=== PATIENT | male | born 1975 | race Caucasian/White ===

== ENCOUNTER 2020-06-23 12:10 | Emergency (ER) | payer SELFPAY ==
[2020-06-23] MEDS ORDERED: HYDROcod/ACETAM 5/325 MG TABLET PO STA (12:24)
--- NOTE | 2020-06-23 12:27 | ED Physician Documentation ---
PD HPI UPPER EXT INJURY - Stated complaint Stated Complaint: LT SHOULDER PX - Chief complaint Chief Complaint: Ext Problem - History obtained from History obtained from: Patient (He fell 2 days ago backwards onto his left shoulder and has persistent moderate pain there. No other injuries.) Review of Systems Constitutional: reports: Reviewed and negative Nose: reports: Reviewed and negative Throat: reports: Reviewed and negative PD PAST MEDICAL HISTORY - Present Medications Home Medications: Ambulatory Orders Medication Instructions Recorded Confirmed HYDROcod/ACETAM 5/325 [[place] 5/325] 1 - 2 tab PO Q6H PRN #15 tablet 06/23/20 - Allergies Allergies/Adverse Reactions: Allergies Allergy/AdvReac Type Severity Reaction Status Date / Time No Known Drug Allergies Allergy Verified 06/23/20 12:14 PD ED PE NORMAL - Vitals Vital signs reviewed: Yes - General General: Alert and oriented X 3, No acute distress - HEENT HEENT: PERRL, EOMI - Neck Neck: Supple, no meningeal sign, No bony TTP - Back Back: No spinal TTP - Extremities Extremities: Other (The shoulder itself is nontender, he is tender to the left scapula and potentially the ribs underneath it. No midline spinal tenderness. He is only able to abduct to about 90 degrees. Internal rotation is painless, external rotation on the extreme is painful.) - Neuro Neuro: Alert and oriented X 3, Normal speech Results - Vitals Vitals: Vital Signs - 24 hr 06/23/20 12:14 Temperature 36.7 C Heart Rate 84 Respiratory 18 Rate Blood Pressure 139/106 H O2 Saturation 100 Oxygen O2 Source Room air - Rads (name of study) L rib and scapula XRs' Radiology: EMP read contemporaneously (NAD) Departure - Departure Disposition: 01 Home, Self Care Clinical Impression: Contusion of left scapula Qualifiers: Encounter type: initial encounter Qualified Code(s): S40.012A - Contusion of left shoulder, initial encounter Contusion of rib on left side Qualifiers: Encounter type: initial encounter Qualified Code(s): S20.212A - Contusion of left front wall of thorax, initial encounter Condition: Good Record reviewed to determine appropriate education?: Yes Instructions: ED Contusion Rib Prescriptions: HYDROcod/ACETAM 5/325 [[place] 5/325] 1 - 2 tab PO Q6H PRN #15 tablet PRN Reason: Pain Comments: No evidence of fracture on the x-rays, although subtle fractures of ribs or scapula can be missed but do not generally require specific treatment. Return if worsening. Follow-up with your doctor in a week if not better.
--- NOTE | 2020-06-23 13:30 | XRAY Report ---
PROCEDURE: Ribs w/PA Chest LT INDICATIONS: back/shoulder injury TECHNIQUE: 2 views of the left ribs were acquired, along with a single view chest. COMPARISON: None FINDINGS: Surgical changes and devices: None. Bones and chest wall: No fractures or dislocations. No acute rib fracture seen. No suspicious bony l esions. Overlying soft tissues appear unremarkable. Lungs and pleura: No pleural effusions or pneumothorax. Lungs appear clear. Mediastinum: Mediastinal contours appear normal. Heart size is normal. IMPRESSION: Chest without acute cardiopulmonary abnormalities. No acute rib fractures identified. Reviewed by: Redd Kelly MD on 06/23/2020 1:29 PM PST Approved by: Redd Kelly MD on 06/23/2020 1:29 PM PST Station ID: [id number]
--- NOTE | 2020-06-23 13:40 | XRAY Report ---
PROCEDURE: Scapula 2 View LT INDICATIONS: back/shoulder injury TECHNIQUE: 3 views of the scapula were acquired. COMPARISON: None FINDINGS: Bones: No acute fractures or dislocations. No suspicious bony lesions. Visualized ribs appear inta ct. No rib fractures noted by the skin BB marker. Soft tissues: Overlying soft tissues appear normal. IMPRESSION: Left shoulder without acute fracture or dislocation. Reviewed by: Redd Kelly MD on 06/23/2020 1:38 PM PST Approved by: Redd Kelly MD on 06/23/2020 1:38 PM PST Station ID: [id number]
[2020-06-23 13:50] VITALS: BP 140/89
== END 2020-06-23 13:52 | disposition home or self-care (01) ==
LOC: ED 12:10
DX: S40.012A Contusion of left shoulder, initial encounter (principal); S20.212A Contusion of left front wall of thorax, initial encounter; W19.XXXA Unspecified fall, initial encounter
CPT/HCPCS: 71101; 73010; 99284; A9270